=== PATIENT | female | born 1940 | race Caucasian/White ===

== ENCOUNTER 2021-01-31 09:53 | Outpatient (CLI) | payer OTHER | END 2021-01-31 10:02 | disposition home or self-care (01) | LOC: SONOGRAMA 09:53 | DX: R31.9 Hematuria, unspecified (principal); N20.0 Calculus of kidney; N84.0 Polyp of corpus uteri; N60.11 Diffuse cystic mastopathy of right breast; N60.19 Diffuse cystic mastopathy of unspecified breast; C50.012 Malignant neoplasm of nipple and areola, left female breast; R92.0 Mammographic microcalcification found on diagnostic imaging of breast; M89.9 Disorder of bone, unspecified; R31.21 Asymptomatic microscopic hematuria; R93.429 Abnormal radiologic findings on diagnostic imaging of unspecified kidney ==

== ENCOUNTER → 2024-05-31 | Outpatient (CLI) | payer OTHER | END | disposition home or self-care (01) | LOC: NUCLEAR 08:25 | PROVIDERS: ATTEND Internal Medicine | DX: I73.9 Peripheral vascular disease, unspecified (principal); I87.2 Venous insufficiency (chronic) (peripheral) ==

== ENCOUNTER 2024-06-01 08:27 | Outpatient (CLI) | payer OTHER | END 2024-06-01 08:29 | disposition home or self-care (01) | LOC: NUCLEAR 08:27 | PROVIDERS: ATTEND Internal Medicine | DX: I73.9 Peripheral vascular disease, unspecified (principal); I87.2 Venous insufficiency (chronic) (peripheral) ==